=== PATIENT | male | born 1965 | race Caucasian/White ===

== ENCOUNTER → 2017-07-07 09:20 | Outpatient (POV) | payer OTHER, SELFPAY ==
[2017-07-07 09:34] VITALS: BP 140/84; PULSE 96; RESP 17; O2SAT 99; BMI 25.8
--- NOTE | 2017-07-07 09:38 | HMH.PAINSOAP ---
[facility] Pain Management SOAP Note Subjective:: This patient is a pleasant 51-year-old white male who we are seeing for complex regional pain syndrome type I of the right lower leg with spinal cord stimulator in place. Pain is minimal he is doing well with his spinal cord stimulator. Occasionally he does have stimulation down his left leg depending on movement. However overall he is very happy and doing well with decreased pain and increased function. He is also on gabapentin 100 mg 3 times a day which is helping. Objective:: Alert and oriented ?3 in no acute distress. Motor strength of the lower and upper extremities is 5/5. There is no gross sensory deficit. Patient does have a normal gait. Assessment:: CRPS type I right lower leg Plan:: We will follow up with him in 3 months. He is doing very well with his [place] stimulator system. He has one more refill on his gabapentin. He is to continue his gabapentin 100 mg 3 times a day
== END ==
PROVIDERS: Family Provider Emergency Medicine; PCP Emergency Medicine; Visit Provider Anesthesiology
DX: G90.521 Complex regional pain syndrome I of right lower limb (principal)
CPT/HCPCS: 99212

== ENCOUNTER → 2017-09-22 09:56 | Outpatient (POV) | payer OTHER, SELFPAY ==
[2017-09-22 10:34] VITALS: BP 134/104; PULSE 88; RESP 18; O2SAT 98; BMI 25.8
--- NOTE | 2017-09-22 11:17 | HMH.PAINSOAP ---
[facility] Pain Management SOAP Note Subjective:: This patient is a pleasant 52-year-old white male who presents today for follow-up. Patient has spinal cord stimulator placed. Patient states he has almost 100% relief with this. He does still have some overall joint pain. Patient is on gabapentin 100 mg 3 times a day which is helping. Patient denies side effects to the medication. Patient states for the first time in 5 years he is back at work. Patient rates his pain a 2 out of 10 today. ROS General: no recent weight change, no fever, no sleep disturbances Respiratory: no cough, no shortness of air, no recurring pulmonary infections Cardiovascular/Peripheral Vascular: No chest pain, No palpitations, no edema, no shortness of breath. Gastrointestinal: no incontinence, normal bowel movements reported Genitourinary: no incontinence Musculoskeletal: Joint pain Psychiatric: normal mood/ affect Neurological: [denies weakness in extremities], [denies balance issues] Objective:: Physical Exam General: Alert and oriented x3, no acute distress, pleasant and cooperative, [on room air] Lungs: Resps E/U, Symmetrical chest expansion, Eyes: PERRL Musculoskeletal: Range of motion bilateral knees somewhat guarded secondary to pain, deep tendon reflexes normal, strength in upper and lower extremities [5/5], slightly antalgic gait noted Neurological: speech clear, electrical line worker equal, no gross sensory deficits Assessment:: Arthritis, CRPS type I right leg Plan:: We will refill the patient's gabapentin 100 mg 1 p.o. 3 times daily. Patient's SELIN #[id number] reviewed and appropriate. We will also give him some compounding cream for his arthritic joint pain. Dr. Baxter has reviewed this chart and agrees with this plan of care. I will follow-up with the patient in 3 months. This note was dictated using voice recognition software and may contain errors or omissions
--- NOTE | 2017-09-22 11:20 | P.CONS_ITS ---
[facility] Pain Management SOAP Note Subjective:: This patient is a pleasant 52-year-old white male who presents today for follow- up. Patient has spinal cord stimulator placed. Patient states he has almost 100% relief with this. He does still have some overall joint pain. Patient is on gabapentin 100 mg 3 times a day which is helping. Patient denies side effects to the medication. Patient states for the first time in 5 years he is back at work. Patient rates his pain a 2 out of 10 today. ROS General: no recent weight change, no fever, no sleep disturbances Respiratory: no cough, no shortness of air, no recurring pulmonary infections Cardiovascular/Peripheral Vascular: No chest pain, No palpitations, no edema, no shortness of breath. Gastrointestinal: no incontinence, normal bowel movements reported Genitourinary: no incontinence Musculoskeletal: Joint pain Psychiatric: normal mood/ affect Neurological: [denies weakness in extremities], [denies balance issues] Objective:: Physical Exam General: Alert and oriented x3, no acute distress, pleasant and cooperative, [ on room air] Lungs: Resps E/U, Symmetrical chest expansion, Eyes: PERRL Musculoskeletal: Range of motion bilateral knees somewhat guarded secondary to pain, deep tendon reflexes normal, strength in upper and lower extremities [5/5] , slightly antalgic gait noted Neurological: speech clear, degreasing wheel operator equal, no gross sensory deficits Assessment:: Arthritis, CRPS type I right leg Plan:: We will refill the patient's gabapentin 100 mg 1 p.o. 3 times daily. Patient's SELIN #[id number] reviewed and appropriate. We will also give him some compounding cream for his arthritic joint pain. Dr. Baxter has reviewed this chart and agrees with this plan of care. I will follow-up with the patient in 3 months. This note was dictated using voice recognition software and may contain errors or omissions
== END ==
PROVIDERS: Family Provider Emergency Medicine; PCP Emergency Medicine; Visit Provider Clinical Nurse Specialist Family Health
DX: G90.521 Complex regional pain syndrome I of right lower limb (principal)
CPT/HCPCS: 99212

== ENCOUNTER → 2017-10-02 08:06 | Outpatient (POV) | payer OTHER, SELFPAY | PROVIDERS: Visit Provider Dentist | DX: Z00.00 Encounter for general adult medical examination without abnormal findings (principal) ==

== ENCOUNTER → 2017-10-17 10:22 | Outpatient (CLI) | payer OTHER, SELFPAY ==
[2017-10-17 14:25] LABS: Basophils % 0.8 % (0.1-2.0); Eosinophils # 0.2 K/mm3 (0.0-0.4); Eosinophils % 4.1 % (0.1-12.0); Hematocrit 47.1 % (42.0-52.0); Hemoglobin 14.7 g/dL (14.1-18.0); Lymphocytes # 1.9 K/mm3 (0.7-4.5); Mean Corpuscular HGB Conc 31.2 g/dL (31.8-35.4); Mean Corpuscular Hemoglobin 32.2 pg (27.0-31.2); Mean Corpuscular Volume 103.4 fl (80-94); Mean Platelet Volume 9.5 fl (7.4-10.4); Monocytes # 0.3 K/mm3 (0.1-1.0); Monocytes % 5.7 % (1.7-9.3); Neutrophils # 2.5 K/mm3 (1.8-7.8); Neutrophils % 50.5 % (37.0-80.0); Platelet Count 129 K/mm3 (142-424); Red Blood Count 4.55 M/mm3 (4.60-6.20); Red Cell Distribution Width 14.6 % (11.5-17.5); White Blood Count 4.9 K/mm3 (4.8-10.8)
[2017-10-17 15:05] LABS: Alanine Aminotransferase 28 U/L (12-78); Albumin Level 3.8 gm/dL (3.4-5.0); Albumin/Globulin Ratio 1.2 (1.1-1.8); Alkaline Phosphatase 67 U/L (46-116); Anion Gap 12.2 mEq/L (5-15); Aspartate Amino Transferase 28 U/L (15-37); Bilirubin,Total 0.8 mg/dL (0.2-1.0); Blood Urea Nitrogen 11 mg/dL (7-18); Carbon Dioxide 27 mmol/L (21.0-32.0); Chloride 104 mmol/L (98-107); Chol/HDL Ratio 3.7 (1-3.5); Cholesterol 199 mg/dL (140-200); Creatinine,Serum 0.82 mg/dL (0.70-1.30); Estimated Glomerular Filt Rate 99 ml/min (>60); GFR (African American) 120 ML/MIN (>60); Globulin 3.1 gm/dl (1.3-3.2); Glucose 150 mg/dL (74-106); HDL Cholesterol 54 mg/dL (27-67); LDL Cholesterol 134 mg/dL (0-130); Potassium 5.2 mmoL/L (3.5-5.1); Sodium 138 mmol/L (136-145); T4 (Thyroxine) 4.4 ug/dl (4.7-13.3); Thyroid Stimulating Hormone 1.26 uIU/ml (0.358-3.740); Total Protein,Serum 6.9 gm/dL (6.4-8.2); Triglycerides 57 mg/dL (30-200); VLDL Cholesterol 11 mg/dL (0-40)
[2017-10-18 18:13] LABS: PSA, Free 0.18 ng/mL; Prostate Specific Ag 0.4 ng/mL (0.0-4.0)
== END ==
PROVIDERS: Visit Provider Emergency Medicine
DX: R53.83 Other fatigue (principal); R07.9 Chest pain, unspecified; Z29.9 Encounter for prophylactic measures, unspecified; I10 Essential (primary) hypertension; I25.10 Atherosclerotic heart disease of native coronary artery without angina pectoris; J32.9 Chronic sinusitis, unspecified
CPT/HCPCS: 80053; 80061; 84153; 84154; 84436; 84443; 85025

== ENCOUNTER → 2017-10-23 09:34 | Outpatient (CLI) | payer OTHER, SELFPAY | PROVIDERS: Family Provider Emergency Medicine; PCP Emergency Medicine; Visit Provider Emergency Medicine | DX: R07.9 Chest pain, unspecified (principal); R53.83 Other fatigue | CPT/HCPCS: 93017 ==

== ENCOUNTER → 2017-12-23 11:21 | Outpatient (POV) | payer OTHER, SELFPAY ==
[2017-12-23 11:43] VITALS: BP 127/95; PULSE 90; RESP 18; O2SAT 98; BMI 24.1
--- NOTE | 2017-12-23 12:09 | P.CONS_ITS ---
[facility] Pain Management SOAP Note Subjective:: Patient is a pleasant 52-year-old white male who presents today for follow-up. Patient had a neurostimulator placed and is doing extremely well he rates his pain a 2 out of 10 to day. Patient does take gabapentin at nighttime to help him sleep. Patient is doing well with this with no side effects. Patient's SELIN #[id number] reviewed and appropriate. Patient has been able to return to work due to his neurostimulator. ROS General: no recent weight change, no fever, no sleep disturbances Respiratory: no cough, no shortness of air, no recurring pulmonary infections Cardiovascular/Peripheral Vascular: No chest pain, No palpitations, no edema, no shortness of breath. Gastrointestinal: no incontinence, normal bowel movements reported Genitourinary: no incontinence Musculoskeletal: Joint pain, back pain Psychiatric: normal mood/ affect Neurological: [denies weakness in extremities], [denies balance issues] Objective:: Physical Exam General: Alert and oriented x3, no acute distress, pleasant and cooperative, [on room air] Lungs: Resps E/U, Symmetrical chest expansion, Eyes: PERRL Musculoskeletal: Flexion and extension of lumbar spine somewhat guarded secondary to pain, deep tendon reflexes normal, strength in upper and lower extremities [5/5], normal gait noted Neurological: speech clear, industrial maintenance repairer equal, no gross sensory deficits Assessment:: Joint pain, arthritis, CRPS type I right leg Plan:: Patient does not need refills of his gabapentin. We will follow-up with the patient in 6 months. Unless the patient needs anything prior to his next appointment. Patient is doing extremely well at this time. This note was dictated using voice recognition software and may contain errors or omissions
== END ==
PROVIDERS: Family Provider Emergency Medicine; PCP Emergency Medicine; Visit Provider Clinical Nurse Specialist Family Health
DX: G90.521 Complex regional pain syndrome I of right lower limb (principal); M19.90 Unspecified osteoarthritis, unspecified site
CPT/HCPCS: 99213

== ENCOUNTER → 2018-04-13 09:51 | Outpatient (POV) | payer OTHER, SELFPAY ==
[2018-04-13 10:05] VITALS: BP 137/94; PULSE 90; RESP 18; O2SAT 99; BMI 22.7
--- NOTE | 2018-04-13 10:23 | HMH.PAINSOAP ---
[facility] Pain Management SOAP Note Subjective:: Patient is a pleasant 52-year-old white male who presents today for follow-up. Patient is doing well with his neurostimulator for CRPS pain however patient states that he is having low back pain with radiation into his leg. Patient has a diagnosis of degenerative disc disease with radiculopathy. Patient rates his pain today a 7 out of 10. This is unusual for him. ROS General: no recent weight change, no fever, no sleep disturbances Respiratory: no cough, no shortness of air, no recurring pulmonary infections Cardiovascular/Peripheral Vascular: No chest pain, No palpitations, no edema, no shortness of breath. Gastrointestinal: no incontinence, normal bowel movements reported Genitourinary: no incontinence Musculoskeletal: Back pain, leg pain Psychiatric: normal mood/ affect Neurological: [denies weakness in extremities], [denies balance issues] Objective:: Physical Exam General: Alert and oriented x3, no acute distress, pleasant and cooperative, [on room air] Lungs: Resps E/U, Symmetrical chest expansion, Eyes: PERRL Musculoskeletal: Flexion and extension of lumbar spine somewhat guarded secondary to pain, deep tendon reflexes normal, strength in upper and lower extremities [5/5], antalgic gait noted, positive straight leg raise test at 30 degrees on the right side Neurological: speech clear, audiometric technician equal, no gross sensory deficits Assessment:: Degenerative disc disease lumbar spine with lumbar radiculopathy, CRPS type I Plan:: Patient is doing extremely well with his neurostimulator. We will schedule him for an L4-L5 lumbar epidural steroid injection to see if this is beneficial with his new symptoms. If not we will get a MRI of his lower back to determine any new pathology. Patient is not on any anticoagulation therapy. Patient is continuing a home stretching program. Patient is currently taking anti-inflammatories. I will follow-up with him after his injection. This note was dictated using voice recognition software and may contain errors or omissions
--- NOTE | 2018-04-13 10:26 | P.CONS_ITS ---
[facility] Pain Management SOAP Note Subjective:: Patient is a pleasant 52-year-old white male who presents today for follow-up. Patient is doing well with his neurostimulator for CRPS pain however patient states that he is having low back pain with radiation into his leg. Patient has a diagnosis of degenerative disc disease with radiculopathy. Patient rates his pain today a 7 out of 10. This is unusual for him. ROS General: no recent weight change, no fever, no sleep disturbances Respiratory: no cough, no shortness of air, no recurring pulmonary infections Cardiovascular/Peripheral Vascular: No chest pain, No palpitations, no edema, no shortness of breath. Gastrointestinal: no incontinence, normal bowel movements reported Genitourinary: no incontinence Musculoskeletal: Back pain, leg pain Psychiatric: normal mood/ affect Neurological: [denies weakness in extremities], [denies balance issues] Objective:: Physical Exam General: Alert and oriented x3, no acute distress, pleasant and cooperative, [on room air] Lungs: Resps E/U, Symmetrical chest expansion, Eyes: PERRL Musculoskeletal: Flexion and extension of lumbar spine somewhat guarded secondary to pain, deep tendon reflexes normal, strength in upper and lower extremities [5/5], antalgic gait noted, positive straight leg raise test at 30 degrees on the right side Neurological: speech clear, display designer outside equal, no gross sensory deficits Assessment:: Degenerative disc disease lumbar spine with lumbar radiculopathy, CRPS type I Plan:: Patient is doing extremely well with his neurostimulator. We will schedule him for an L4-L5 lumbar epidural steroid injection to see if this is beneficial with his new symptoms. If not we will get a MRI of his lower back to determine any new pathology. Patient is not on any anticoagulation therapy. Patient is continuing a home stretching program. Patient is currently taking anti- inflammatories. I will follow-up with him after his injection. This note was dictated using voice recognition software and may contain errors or omissions
== END ==
PROVIDERS: PCP Emergency Medicine; Visit Provider Clinical Nurse Specialist Family Health
DX: M51.16 Intervertebral disc disorders with radiculopathy, lumbar region (principal); G90.50 Complex regional pain syndrome I, unspecified
CPT/HCPCS: 99213

== ENCOUNTER → 2018-05-11 10:23 | Outpatient (POV) | payer OTHER, SELFPAY ==
[2018-05-11 11:14] VITALS: BP 131/92; PULSE 118; RESP 18; O2SAT 98; BMI 23.3
--- NOTE | 2018-05-11 13:01 | HMH.PAINSOAP ---
[facility] Pain Management SOAP Note Subjective:: Is a pleasant 52-year-old white male who presents today for follow-up. He is been doing well with his stimulator for CRPS pain however he has having low back pain with radiation into his leg. Patient hasa degenerative disc disease with radiculopathy however he states is become quite unusual for him and debilitating. Patient rates his pain 8 out of 10. He is having difficulty with some of his day-to-day functions including his work. Patient does not have any updated imaging in regards to this. ROS General: no recent weight change, no fever, no sleep disturbances Respiratory: no cough, no shortness of air, no recurring pulmonary infections Cardiovascular/Peripheral Vascular: No chest pain, No palpitations, no edema, no shortness of breath. Gastrointestinal: no incontinence, normal bowel movements reported Genitourinary: no incontinence Musculoskeletal: Back pain, leg pain Psychiatric: normal mood/ affect Neurological: [denies weakness in extremities], [denies balance issues] Objective:: Physical Exam General: Alert and oriented x3, no acute distress, pleasant and cooperative, [on room air] Lungs: Resps E/U, Symmetrical chest expansion, Eyes: PERRL Musculoskeletal: Flexion and extension of lumbar spine somewhat guarded secondary to pain, deep tendon reflexes normal, strength in upper and lower extremities [5/5], [abnormal gait noted] positive straight leg raise test bilaterally at 30 degrees Neurological: speech clear, aircraft painter apprentice equal, no gross sensory deficits Assessment:: Degenerative disc disease lumbar spine for radiculopathy, CRPS type Plan:: Will order a lumbar MRI to determine pathology. We will follow-up with the patient after this. He is not on anticoagulation therapy and he is continuing a home stretching program and is on anti-inflammatories. Dr. Baxter has reviewed this note and agrees with this plan of care. This note was dictated using voice recognition software and may contain errors or omissions
== END ==
PROVIDERS: PCP Emergency Medicine; Visit Provider Clinical Nurse Specialist Family Health
DX: M51.16 Intervertebral disc disorders with radiculopathy, lumbar region (principal)
CPT/HCPCS: 99213

== ENCOUNTER → 2018-05-18 13:35 | Outpatient (CLI) | payer OTHER, SELFPAY ==
--- NOTE | 2018-05-18 14:03 | MR_ITS ---
MR lumbar spine wo con, MR 3-d myelogram/MRCP HISTORY: PT states low back pain X years. RT leg pain, numbness, and tingling X 6 months.ITS.REASON: BACK PAIN ORDERING PHYSICIAN: Isabella Saleem PATIENT AGE: 52 years Comparison: None TECHNIQUE: Standard multiplanar multiecho sequences are performed without contrast. 3-D MIP and myelographic images are also rendered and reviewed FINDINGS: The spinal cord ends at L1-L2. Artifact is present from the neurostimulator device in the epidural region. Present from the L3 level superiorly to the T12 level. The artifact obscures the peripheral and posterior aspect of the canal centrally. T12-L1, L1-L2, L2-L3 have an unremarkable appearance aside from the posterior artifact. 304: Mild facet and ligamentum hypertrophy. L4-L5: Concentric bulging disc. This is eccentric toward the left along with moderate facet and ligamentum flavum hypertrophic change with bilateral lateral recess narrowing and moderate bilateral foraminal narrowing. The foraminal and lateral recess narrowing is somewhat worse on the left compared to the right side. L5-S1: Degenerative disc disease with bulging disc along with moderate facet and ligamentum hypertrophy with moderate bilateral lateral recess narrowing. There is moderate to severe right-sided foraminal narrowing and moderate left-sided foraminal narrowing. No extruded herniated disc. No bony canal stenosis. IMPRESSION: 1. Artifact posteriorly from epidural stimulator device. 2. L4-L5: Concentric bulging disc. This is eccentric toward the left along with moderate facet and ligamentum flavum hypertrophic change with bilateral lateral recess narrowing and moderate bilateral foraminal narrowing. The foraminal and lateral recess narrowing is somewhat worse on the left compared to the right side. 3. L5-S1: Degenerative disc disease with bulging disc along with moderate facet and ligamentum hypertrophy with moderate bilateral lateral recess narrowing. There is moderate to severe right-sided foraminal narrowing and moderate left-sided foraminal narrowing.
== END ==
PROVIDERS: PCP Emergency Medicine; Visit Provider Clinical Nurse Specialist Family Health
DX: M54.5 Low back pain (principal); M79.604 Pain in right leg
CPT/HCPCS: 72148; 76376

== ENCOUNTER → 2018-05-25 11:26 | Outpatient (POV) | payer OTHER, SELFPAY ==
[2018-05-25 11:56] VITALS: BP 123/85; PULSE 89; RESP 18; O2SAT 99; BMI 24.1
--- NOTE | 2018-05-25 12:13 | P.CONS_ITS ---
[facility] Pain Management SOAP Note Subjective:: Is a very pleasant 52-year-old white male who presents today for follow-up after MRI. Patient has worsening back pain. Patient states standing and walking makes his pain worse while sitting and bending forward makes it better. Patient has a nerve stimulator for his foot pain. Patient has been very happy with this. Patient rates his pain 8 out of 10 in his back. Patient and I had a discussion about a vertical flex. I do believe it would be beneficial for him. Patient is interested in moving forward with this. He is tried and failed epidural injections along with physical therapy. He is wanting to continue work but is finding it difficult at this time. He is continuing a home stretching program along with anti-inflammatories. ROS General: no recent weight change, no fever, no sleep disturbances Respiratory: no cough, no shortness of air, no recurring pulmonary infections Cardiovascular/Peripheral Vascular: No chest pain, No palpitations, no edema, no shortness of breath. Gastrointestinal: no incontinence, normal bowel movements reported Genitourinary: no incontinence Musculoskeletal: Back pain, leg pain Psychiatric: normal mood/ affect Neurological: [denies weakness in extremities], [denies balance issues] Objective:: Physical Exam General: Alert and oriented x3, no acute distress, pleasant and cooperative, [on room air] Lungs: Resps E/U, Symmetrical chest expansion Eyes: PERRL Musculoskeletal: Flexion and extension of lumbar spine somewhat guarded secondary to pain, deep tendon reflexes normal, strength in upper and lower extremities [5/5], [abnormal gait noted] Neurological: speech clear, geodetic advisor equal, no gross sensory deficits Assessment:: Degenerative disc disease lumbar spine with no stenosis, ligamentum flavum hypertrophy Plan:: We will send the patient for flexion-extension films in regards to potential vertical flex procedure. If he is a candidate we will move forward with this. He is not on any anticoagulation therapy. Dr. Baxter has reviewed this note and agrees with this plan of care. This note was dictated using voice recognition software and may contain errors or omissions
--- NOTE | 2018-05-25 12:14 | XR_ITS ---
EXAM: XR lumbar spine 1V HISTORY: ITS.REASON: BACK PAIN ORDERING PHYSICIAN: Isabella Saleem PATIENT AGE: 52 years COMPARISON: None FINDINGS: An AP view of the lumbar spine shows no significant scoliosis. There is degenerative disc disease at the lumbosacral junction. There is an epidural catheter present with the leads overlying the lower thoracic spine. IMPRESSION: Epidural stimulator device present. No scoliosis
--- NOTE | 2018-05-25 12:14 | XR_ITS ---
EXAM: XR lumbar spine bending only HISTORY: ITS.REASON: BACK PAIN ORDERING PHYSICIAN: Isabella Saleem PATIENT AGE: 52 years COMPARISON: None FINDINGS: Flexion and extension views are obtained but no neutral lateral views are obtained.. There is minimal anterolisthesis of L4 on L5 of 3 to 4 mm on the flexion image. No abnormal subluxation is evident on the extension images. There is degenerative disc disease at L5-S1 and to a lesser degree at L4-L5. There is an epidural stimulator device present at the T12-L1 level. IMPRESSION: 1. Minimal anterolisthesis of L4 on L5 of 3 to 4 mm in flexion. 2. Degenerative disc disease L4-5 and L5-S1
== END ==
PROVIDERS: PCP Emergency Medicine; Visit Provider Clinical Nurse Specialist Family Health
DX: M51.36 Other intervertebral disc degeneration, lumbar region (principal); M46.06 Spinal enthesopathy, lumbar region; M54.9 Dorsalgia, unspecified
CPT/HCPCS: 72020; 72120; 99213

== ENCOUNTER → 2018-06-22 09:02 | Outpatient (POV) | payer OTHER, SELFPAY ==
[2018-06-22 09:42] VITALS: BP 155/94; PULSE 72; RESP 18; O2SAT 98; BMI 23.3
--- NOTE | 2018-06-22 09:49 | HMH.PAINSOAP ---
[facility] Pain Management SOAP Note Subjective:: Patient is a very pleasant 52-year-old white male who presents today for follow-up. Patient had discussed a vertical flex procedure with me however at this time he does not believe it is a viable option due to finances. Patient states most of his pain is in his low back and down his right leg when he is walking he rates his pain a 3 out of 10 today. Patient would like to try an injection prior to making a decision in regards to the for to flex. He is continuing his home stretching program along with his anti-inflammatories. He currently has a neurostimulator which is doing well for his CRPS. ROS General: no recent weight change, no fever, no sleep disturbances Respiratory: no cough, no shortness of air, no recurring pulmonary infections Cardiovascular/Peripheral Vascular: No chest pain, No palpitations, no edema, no shortness of breath. Gastrointestinal: no incontinence, normal bowel movements reported Genitourinary: no incontinence Musculoskeletal:back pain, leg pain Psychiatric: normal mood/ affect Neurological: [denies weakness in extremities], [denies balance issues] Objective:: Physical Exam General: Alert and oriented x3, no acute distress, pleasant and cooperative, [on room air] Lungs: Resps E/U, Symmetrical chest expansion, Eyes: PERRL Musculoskeletal: Flexion and extension of lumbar I no spine somewhat guarded secondary to pain, deep tendon reflexes normal, strength in upper and lower extremities [5/5], antalgic gait noted, positive leg raise test on the right side. Neurological: speech clear, slide fasteners inspector equal, no gross sensory deficits Assessment:: Degenerative disc disease lumbar spine with lumbar spondylosis and ligamentum flavum hypertrophy, lumbar radiculopathy Plan:: We will plan a right transforaminal epidural steroid injection for the patient to see if this is beneficial for him we will go at the L4-L5 level. Patient is not on any anticoagulation therapy. He is continuing his anti-inflammatories and home stretching program. Dr. Baxter has reviewed this note and agrees with this plan of care. This note was dictated using voice recognition software and may contain errors or omissions
--- NOTE | 2018-06-22 09:53 | P.CONS_ITS ---
[facility] Pain Management SOAP Note Subjective:: Patient is a very pleasant 52-year-old white male who presents today for follow- up. Patient had discussed a vertical flex procedure with me however at this time he does not believe it is a viable option due to finances. Patient states most of his pain is in his low back and down his right leg when he is walking he rates his pain a 3 out of 10 today. Patient would like to try an injection prior to making a decision in regards to the for to flex. He is continuing his home stretching program along with his anti-inflammatories. He currently has a neurostimulator which is doing well for his CRPS. ROS General: no recent weight change, no fever, no sleep disturbances Respiratory: no cough, no shortness of air, no recurring pulmonary infections Cardiovascular/Peripheral Vascular: No chest pain, No palpitations, no edema, no shortness of breath. Gastrointestinal: no incontinence, normal bowel movements reported Genitourinary: no incontinence Musculoskeletal:back pain, leg pain Psychiatric: normal mood/ affect Neurological: [denies weakness in extremities], [denies balance issues] Objective:: Physical Exam General: Alert and oriented x3, no acute distress, pleasant and cooperative, [on room air] Lungs: Resps E/U, Symmetrical chest expansion, Eyes: PERRL Musculoskeletal: Flexion and extension of lumbar I no spine somewhat guarded secondary to pain, deep tendon reflexes normal, strength in upper and lower extremities [5/5], antalgic gait noted, positive leg raise test on the right side. Neurological: speech clear, graduate student equal, no gross sensory deficits Assessment:: Degenerative disc disease lumbar spine with lumbar spondylosis and ligamentum flavum hypertrophy, lumbar radiculopathy Plan:: We will plan a right transforaminal epidural steroid injection for the patient to see if this is beneficial for him we will go at the L4-L5 level. Patient is not on any anticoagulation therapy. He is continuing his anti-inflammatories and home stretching program. Dr. Baxter has reviewed this note and agrees with this plan of care. This note was dictated using voice recognition software and may contain errors or omissions
== END ==
PROVIDERS: PCP Emergency Medicine; Visit Provider Clinical Nurse Specialist Family Health
DX: M51.16 Intervertebral disc disorders with radiculopathy, lumbar region (principal); M47.816 Spondylosis without myelopathy or radiculopathy, lumbar region; M46.06 Spinal enthesopathy, lumbar region
CPT/HCPCS: 99213

== ENCOUNTER → 2019-03-30 09:06 | Outpatient (POV) | payer OTHER, SELFPAY ==
--- NOTE | 2019-03-30 09:21 | P.CONS_ITS ---
[facility] Pain Management SOAP Note Subjective:: Patient is a pleasant 53-year-old white male who presents today for follow-up after his injection. Patient did not get any relief. Patient does not want repeat any injections. Patient does have a neurostimulator that may need reprogrammed. It is doing well for his leg however not for his back. He rates his pain a 5 out of 10 today. We will have the [facility] representatives reach out to him. ROS General: no recent weight change, no fever, no sleep disturbances Respiratory: no cough, no shortness of air, no recurring pulmonary infections Cardiovascular/Peripheral Vascular: No chest pain, No palpitations, no edema, no shortness of breath. Gastrointestinal: no new onset incontinence, normal bowel movements reported Genitourinary: no new onset incontinence Musculoskeletal: Back pain Psychiatric: normal mood/ affect Neurological: [denies new onset weakness in extremities], [denies new onset balance issues] Objective:: Physical Exam General: Alert and oriented x3, no acute distress, pleasant and cooperative, [on room air] Lungs: Resps E/U, Symmetrical chest expansion, Eyes: PERRL Musculoskeletal: Flexion and extension of lumbar spine somewhat guarded secondary to pain, deep tendon reflexes normal, strength in upper and lower extremities [5/5], [abnormal gait noted] Neurological: speech clear, 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 Patient's been surgical the office. Dr. Baxter has reviewed this note and agrees with this plan of care. This note was dictated using voice recognition software and may contain errors or omissions [facility] History I have reviewed the patient's past medical history: Yes Medical History: Reports:: Coronary Artery Disease, Gastroesophageal Reflux Disease(GERD), Hyperlipidemia, Hypertension, Myocardial Infarction Denies:: Diabetes Mellitus Type 1, Diabetes Mellitus Type 2, Internal Pacemaker, Lung Disease, Seizures *Have you ever received a pneumonia vaccine?: No *Have you received a flu vaccine this season?: Yes Other Medical History: Reports: Sinus Problems Other Surgeries: Yes: Cardiac Catheterization (2012), EGD, Sinus Surgery, Other. No: Pacemaker Amputation: No Fractures: Yes - *Social History Smoking Status: Never smoker Tobacco Type: cigarettes # Packs/Day (cigarettes): 1 Alcohol Intake: never Alcohol Intake Frequency:: 3 or more drinks per day Substance Use Type: denies use *Occupational Status:: other Household Members: spouse *Travel in the last 8 weeks: None Family Hx:: Hypertension, Cancer
[2019-03-30 10:07] VITALS: BP 161/89; PULSE 93; RESP 18; O2SAT 99; BMI 25.0
== END ==
PROVIDERS: PCP Emergency Medicine; Visit Provider Clinical Nurse Specialist Family Health
DX: M51.16 Intervertebral disc disorders with radiculopathy, lumbar region (principal)
CPT/HCPCS: 99212

== ENCOUNTER → 2019-05-21 17:13 | Outpatient (CLI) | payer MEDICAID, SELFPAY ==
[2019-05-21 17:57] LABS: Basophils # 0.1 K/mm3 (0-0.2); Eosinophils # 0.2 K/mm3 (0.0-0.4); Eosinophils % 3.9 % (0.1-12.0); Hematocrit 47.9 % (42.0-52.0); Hemoglobin 15.6 g/dL (14.1-18.0); Lymphocytes # 2.1 K/mm3 (0.7-4.5); Lymphocytes % 37.6 % (10-50); Mean Corpuscular HGB Conc 32.5 g/dL (31.8-35.4); Mean Corpuscular Hemoglobin 34.9 pg (27.0-31.2); Mean Corpuscular Volume 107.3 fl (80-94); Mean Platelet Volume 8.6 fl (7.4-10.4); Monocytes # 0.4 K/mm3 (0.1-1.0); Monocytes % 6.1 % (1.7-9.3); Neutrophils # 2.9 K/mm3 (1.8-7.8); Neutrophils % 51.3 % (37.0-80.0); Platelet Count 139 K/mm3 (142-424); Red Blood Count 4.46 M/mm3 (4.60-6.20); Red Cell Distribution Width 13.6 % (11.5-17.5); White Blood Count 5.7 K/mm3 (4.8-10.8)
[2019-05-21 19:53] LABS: Alanine Aminotransferase 48 U/L (12-78); Albumin Level 4.2 gm/dL (3.4-5.0); Albumin/Globulin Ratio 1.4 (1.1-1.8); Alkaline Phosphatase 60 U/L (46-116); Anion Gap 16.6 mEq/L (5-15); Aspartate Amino Transferase 63 U/L (15-37); Bilirubin,Total 0.3 mg/dL (0.2-1.0); Blood Urea Nitrogen 14 mg/dL (7-18); Calcium 9.1 mg/dL (8.5-10.1); Carbon Dioxide 27 mmol/L (21.0-32.0); Chloride 104 mmol/L (98-107); Cholesterol 238 mg/dL (140-200); Creatinine,Serum 0.84 mg/dL (0.70-1.30); Estimated Glomerular Filt Rate 96 ml/min (>60); GFR (African American) 116 ML/MIN (>60); Globulin 2.9 gm/dl (1.3-3.2); Glucose 106 mg/dL (74-106); HDL Cholesterol 60 mg/dL (27-67); LDL Cholesterol 145 mg/dL (0-130); Potassium 3.6 mmoL/L (3.5-5.1); Sodium 144 mmol/L (136-145); T4 (Thyroxine) 4.1 ug/dl (4.7-13.3); Thyroid Stimulating Hormone 0.75 uIU/ml (0.358-3.740); Total Protein,Serum 7.1 gm/dL (6.4-8.2); Triglycerides 165 mg/dL (30-200); VLDL Cholesterol 33 mg/dL (0-40)
[2019-05-23 09:30] LABS: Prostate Specific Ag 0.6 ng/mL (0.0-4.0)
[2019-05-25 05:31] LABS: Vitamin D 25 Hydroxy 28.7 ng/mL (30.0-100.0)
== END ==
PROVIDERS: Visit Provider Nurse Practitioner Family
DX: I10 Essential (primary) hypertension (principal); E55.9 Vitamin D deficiency, unspecified
CPT/HCPCS: 80053; 80061; 82652; 84153; 84154; 84436; 84443; 85025

== ENCOUNTER → 2019-09-24 14:35 | Outpatient (CLI) | payer MEDICAID, SELFPAY ==
[2019-09-24 15:41] LABS: Chloride 103 mmol/L (98-107); Sodium 140 mmol/L (136-145)
[2019-09-24 15:42] LABS: Potassium 3.7 mmoL/L (3.5-5.1)
[2019-09-24 15:44] LABS: Alanine Aminotransferase 31 U/L (12-78); Albumin Level 4.6 g/dl (3.5-5.0); Albumin/Globulin Ratio 1.5 (1.1-1.8); Alkaline Phosphatase 59 U/L (38-126); Anion Gap 12.7 mEq/L (5-15); Aspartate Amino Transferase 56 U/L (17-59); Bilirubin,Total 1.3 mg/dl (0.2-1.3); Blood Urea Nitrogen 18 mg/dl (9-20); Carbon Dioxide 28 mmol/L (22.0-30.0); Cholesterol 214 mg/dl (140-200); Estimated Glomerular Filt Rate 101 ml/min (>60); GFR (African American) 122 ML/MIN (>60); Glucose 149 mg/dl (74-100); Total Protein,Serum 7.6 g/dl (6.3-8.2); Triglycerides 108 mg/dl (30-150); VLDL Cholesterol 22 mg/dL (0-40)
[2019-09-24 15:45] LABS: Calcium 9.8 mg/dl (8.4-10.2); Chol/HDL Ratio 4.3 (1-3.5); HDL Cholesterol 50 mg/dl (40-60)
[2019-09-24 16:02] LABS: T4 (Thyroxine) 5.8 ug/dl (5.53-11.0)
== END ==
PROVIDERS: Visit Provider Nurse Practitioner Family
DX: I10 Essential (primary) hypertension (principal); Z79.899 Other long term (current) drug therapy
CPT/HCPCS: 80053; 80061; 84436

== ENCOUNTER → 2019-10-19 12:07 | Outpatient (CLI) | payer MEDICAID, SELFPAY ==
[2019-10-19 13:17] LABS: Hemoglobin A1C 5.5 % (4.0-6.0)
[2019-10-19 13:59] LABS: Coronavirus 19 IgG Antibody Negative (Negative); Coronavirus 19 IgM Antibody Negative (Negative)
== END ==
PROVIDERS: Emergency Medicine; Visit Provider Physician Assistant
DX: R73.9 Hyperglycemia, unspecified (principal)
CPT/HCPCS: 36415; 83036; 86328

== ENCOUNTER → 2021-11-12 14:01 | Outpatient (POV) | payer MEDICAID, SELFPAY ==
[2021-11-12 14:32] VITALS: BP 141/97; PULSE 93; RESP 20; TEMP 36.9; O2SAT 98; BMI 26.6
--- NOTE | 2021-11-12 15:33 | HMH.PMCON ---
Assessment and Plan (1) CRPS (complex regional pain syndrome) type I of lower limb Status: Acute Category: Medical Code(s): G90.529 - Complex regional pain syndrome I of unspecified lower limb - Assessment and plan all Dx Assessment and Plan for all problems:: We will schedule this patient for a generator change of his Aguilar DRG stimulator. Patient has been instructed to contact the clinic with any concerns before the next appointment. Dr. Baxter has reviewed this note and agrees with this plan of care. This note was dictated using voice recognition software and make contain errors or omissions. HPI - Data of Consult Consult date: 11/12/21 Requesting Physician: LILLIAM Christianson - Consult Narrative Reason for consult: Right leg pain History of present illness: Mr. Adams is a 56 year old male who [facility] We were seeing this patient for CRPS of the right lower extremity in 2019. He initially injured his right foot in 2012. We have not seen this patient since 2019. We have been managing this patient with an Aguilar DRG stimulator for his right lower extremity. He had reached out to [facility] who said that he needs a new generator. Patient states that he has been increasing pain on his right lower extremity. He has tried and failed conservative therapy in the past such as physical therapy and home exercises for getting 6 weeks and oral medications. Rates pain today as 6 out of 10. CC: LILLIAM Chrisitanson [facility] History I have reviewed the patient's past medical history: Yes Medical History: Reports:: Coronary Artery Disease, Gastroesophageal Reflux Disease(GERD), Hyperlipidemia, Hypertension, Myocardial Infarction Denies:: Diabetes Mellitus Type 1, Diabetes Mellitus Type 2, Internal Pacemaker, Lung Disease, Seizures *Have you ever received a pneumonia vaccine?: No *Have you received a flu vaccine this season?: No Other Medical History: Reports: Arthritis, Sinus Problems Laterality Cases: Right: Other Other Surgeries: Yes: Cardiac Catheterization, Colonoscopy, EGD, Sinus Surgery, Other (EAR SX). No: Pacemaker Amputation: No Fractures: Yes (R LEG FX AND SX) - *Social History Smoking Status: Current every day smoker Tobacco Type: cigarettes # Packs/Day (cigarettes): 1 Alcohol Intake: current Alcohol Intake Frequency:: 3 or more drinks per day Substance Use Type: denies use *Occupational Status:: other Household Members: spouse *Travel in the last 8 weeks: None Family Hx:: Hypertension, Cancer Review of Systems - Review of Systems Review of Systems: General: No recent weight changes, no fever, no sleep disturbances Respiratory: No cough, no shortness of air, no recurring pulmonary infections Cardiovascular/peripheral vascular: No chest pain, no palpitations, no edema, no shortness of breath Gastrointestinal: No new onset incontinence, normal bowel movements reported Genitourinary: No new onset incontinence Musculoskeletal: Right leg pain Psychiatric: [Normal mood/affect] Neurological: [Denies weakness in extremities], [denies balance issues] Meds Home Medications Medication Instructions Recorded Confirmed Type Amlodipine Besylate See Rx Instructions .ROUTE .COMPLEX 11/12/21 11/12/21 History Cholecalciferol (Vitamin D3) See Rx Instructions .ROUTE .COMPLEX 11/12/21 11/12/21 History [Vitamin D3 1,000 Unit Tab] Simvastatin See Rx Instructions .ROUTE .COMPLEX 11/12/21 11/12/21 History lisinopriL [Lisinopril] See Rx Instructions .ROUTE .COMPLEX 11/12/21 11/12/21 History Allergies Allergy/AdvReac Type Severity Reaction Status Date / Time codeine [CODEINE] Allergy Unknown I-ITCHING Verified 10/06/19 13:56 Objective Vital signs: Temp Pulse Resp BP Pulse Ox 98.4 F 93 H 20 141/97 H 98 11/12/21 14:32 11/12/21 14:32 11/12/21 14:32 11/12/21 14:32 11/12/21 14:32 Narrative: Physical Exam: General: Alert and oriented x3, no acute distress, pleasant and cooperative
== END ==
PROVIDERS: Visit Provider Student in an Organized Health Care Education/Training Program
DX: G90.529 Complex regional pain syndrome I of unspecified lower limb (principal); Z72.0 Tobacco use
CPT/HCPCS: 99202; G0463

== ENCOUNTER → 2021-12-26 08:31 | Outpatient (CLI) | payer MEDICAID, SELFPAY ==
[2021-12-26 09:22] LABS: Basophils # 0.1 K/mm3 (0-0.2); Basophils % 1.4 % (0.1-2.0); Eosinophils # 0.2 K/mm3 (0.0-0.4); Eosinophils % 3.6 % (0.1-12.0); Hematocrit 52.3 % (42.0-52.0); Hemoglobin 16.2 g/dL (14.1-18.0); Lymphocytes # 2.5 K/mm3 (0.7-4.5); Lymphocytes % 40.8 % (10-50); Mean Corpuscular Hemoglobin 34.8 pg (27.0-31.2); Mean Corpuscular Volume 112.1 fl (80-94); Mean Platelet Volume 9.1 fl (7.4-10.4); Monocytes # 0.5 K/mm3 (0.1-1.0); Monocytes % 8.8 % (1.7-9.3); Neutrophils # 2.8 K/mm3 (1.8-7.8); Neutrophils % 45.4 % (37.0-80.0); Platelet Count 130 K/mm3 (142-424); Red Blood Count 4.66 M/mm3 (4.60-6.20); Red Cell Distribution Width 13.9 % (11.5-17.5); White Blood Count 6.2 K/mm3 (4.8-10.8)
[2021-12-26 10:21] LABS: Anion Gap 9.3 mEq/L (5-15); Blood Urea Nitrogen 9 mg/dl (9-20); Calcium 9.7 mg/dl (8.4-10.2); Carbon Dioxide 26 mmol/L (22.0-30.0); Chloride 107 mmol/L (98-107); Estimated Glomerular Filt Rate 100 ml/min (>60); GFR (African American) 121 ML/MIN (>60); Glucose 85 mg/dl (74-100); Potassium 4.3 mmoL/L (3.5-5.1); Sodium 138 mmol/L (136-145)
== END ==
PROVIDERS: PCP Emergency Medicine; Visit Provider Anesthesiology
DX: Z01.812 Encounter for preprocedural laboratory examination (principal); Z20.822 Contact with and (suspected) exposure to COVID-19
CPT/HCPCS: 36415; 80048; 85025; C9803; U0003; U0005

== ENCOUNTER 2021-12-28 07:19 | Day surgery (SDC) | payer MEDICAID, SELFPAY ==
[2021-12-25 13:09] VITALS: BMI 25.8
[2021-12-28 07:34] VITALS: BP 127/82; PULSE 85; RESP 18; TEMP 36.6; O2SAT 98
--- NOTE | 2021-12-28 09:16 | P.PN_ITS ---
PFSH PFSH Medical History Colonoscopy planned History of back pain History of heart attack Right leg injury Surgical History History of tympanoplasty of right ear Hx of cardiac catheterization S/P insertion of spinal cord stimulator Family History Other No significant family history Social History Smoking Status: Current every day smoker tobacco type: cigarettes packs per day: 1 years smoked: 40 alcohol intake: current counseling provided: none substance use type: denies use current occupational status: other Travel in the last 8 weeks: None household members: none housing: house lives independently: Yes marital status: service: No halfway: No current occupational exposures/hazards: No caffeine: Yes do you feel safe at home: Yes victim of physical abuse: No victim of emotional abuse: No victim of sexual abuse: No [facility] Anesthesia Checklist Patient Identification Patient Identification: Arm Band and Verbal (Name & ) Structural Data Admitted From: Home Planned Operative Procedure/s: Generator change Consent for Planned Operative Procedure(s) Verified: Yes NPO Status Verified Time NPO: 00:00 Additional verifications Anesthesia Reactions: No Hx Blood Transfusions: No Blood Transfusion Reaction: No Airway Assessment C-Spine Mobility Assessed: Yes TMJ Mobility Assessed: Yes Dentition: Edentulous Neurological Assessment Level of Consciousness: Awake Hx Seizures: No Numbness or tingling in extremities: No Anesthesia Plan Anesthesia Plan: Verified ASA Class: III Anesthesia Type: MAC
[2021-12-28 10:28] VITALS: BP 64/48; PULSE 88; RESP 14; TEMP 36.3; O2SAT 98
[2021-12-28 10:38] VITALS: BP 83/58; PULSE 72; RESP 14; TEMP 36.3; O2SAT 93
--- NOTE | 2021-12-28 10:47 | P.OP_ITS ---
Date of procedure: 12/28/21 Pre-op Diagnosis:: End-of-life spinal cord stimulator battery Aguilar with traditional spinal cord stimulator leads Post-op Diagnosis:: Same Procedure performed:: Replacement spinal cord stimulator battery Surgeon:: Butch Baxter MD DIRECTOR BIOMEDICAL ENGINEERING:: Eriberto Edward Anesthesia: MAC Estimated blood loss (mL): 5 Clinical Note:: This patient is a pleasant 56-year-old white male who has an Aguilar traditional spinal cord stimulator system. His leads are at T10-T11 and T12. He is doing well with his spinal cord stimulation. His habit battery is end-of-life and is currently . We will replace his spinal cord stimulator battery today. Operative findings:: None Operative note:: Informed consent was obtained risk and benefits of the procedure were explained to the patient. The patient was taken to the operating room placed prone on the procedure table. We did take pictures of the leads to document position at the [id number] interspace. We anesthetized the skin and subcutaneous tissues overlying the battery. I made an incision and dissected down to the battery. I exposed the battery and disconnected the leads. I reconnected the new leads to the new battery. Impedances were checked and found to be okay. I then placed the battery back in the pocket. I irrigated the pocket with antibiotic solution. I then closed the pocket with 2-0 Vicryl followed by 4-0 nylon. A wound VAC was placed over the incision. The patient was placed in an abdominal binder taken recovery stable condition. The patient tolerated the procedure well with no complications. We will follow-up with this patient in 1 weeks. We will reprogram his stimulator if needed. Sutures will be taken out in 3 weeks. Condition: stable Disposition: PACU Complications:: None
[2021-12-28 10:48] VITALS: BP 111/76; PULSE 77; RESP 18; TEMP 36.3; O2SAT 96
[2021-12-28 10:58] VITALS: BP 126/95; PULSE 69; RESP 18; TEMP 36.3; O2SAT 96
[2021-12-28 11:28] VITALS: BP 127/85; PULSE 61; RESP 18; TEMP 36.3; O2SAT 98
--- NOTE | 2021-12-28 14:26 | PC.NURSE ---
ORAL AIRWAY IN PLACE
--- NOTE | 2021-12-28 14:29 | PC.NURSE ---
ORAL AIRWAY REMOVED- PATIENT TOLERATED WELL
== END 2021-12-28 11:28 | disposition home or self-care (01) ==
PROVIDERS: PCP Nurse Practitioner Family; Visit Provider Anesthesiology
PROC: (CPT 63685; principal; 2021-12-28 09:00)
DX: T85.113A Breakdown (mechanical) of implanted electronic neurostimulator, generator, initial encounter (principal); Z45.49 Encounter for adjustment and management of other implanted nervous system device; Z72.0 Tobacco use; Z79.899 Other long term (current) drug therapy
CPT/HCPCS: 63685; 96374; C1767

== ENCOUNTER → 2022-01-03 14:47 | Outpatient (POV) | payer MEDICAID, SELFPAY ==
[2022-01-03 15:02] VITALS: BP 130/79; PULSE 96; RESP 18; TEMP 36.7; O2SAT 97; BMI 25.8
--- NOTE | 2022-01-03 15:31 | EXP.PAIN.SOA ---
[facility] Pain Management SOAP Note Subjective:: Patient is a pleasant 56-year-old male who presents today for follow-up from removal of end-of-life spinal cord stimulator battery and implantation of new battery on 12/28/2021. We are currently treating the patient for CRPS type I lower limb, right leg pain. Today the patient rates his pain a 3 out of 10. He denies any problems following this procedure. He states he is doing well with minimal pain around his incision sites. Patient denies any new trauma or injury to the site. He denies any change to the location or type of pain he experiences. Patient is not on any scheduled medications currently. He states he had been previously on gabapentin 100 mg 3 times daily back before the pandemic. Patient denies any side effects from this medication. He states this medication did help adequately manage his nerve pain. He is requesting to be put back on this medication at today's visit. His Eric is [id number]. It has been reviewed and appropriate. Review of Systems: General: No recent weight changes, no fever, no sleep disturbances Respiratory: No cough, no shortness of air, no recurring pulmonary infections Cardiovascular/peripheral vascular: No chest pain, no palpitations, no edema, no shortness of breath Gastrointestinal: No new onset incontinence, normal bowel movements reported Genitourinary: No new onset incontinence Musculoskeletal: Right leg pain Psychiatric: [Normal mood/affect] Neurological: [Denies weakness in extremities], [denies balance issues] Objective:: Physical Exam: General: Alert and oriented x3, no acute distress, pleasant and cooperative Lungs: Respirations even and unlabored, symmetrical chest expansion Eyes: PERRL Musculoskeletal: Flexion and extension of right leg somewhat guarded secondary to pain, [antalgic gait noted] Neurological: Speech clear, no gross sensory deficit Skin: Incision site clean, dry, well approximated, no erythema Assessment:: CRPS type one of the lower limb, right leg pain Plan:: Patient has had significant improvement of his symptoms following replacement of his Aguilar spinal cord stimulator battery. Patient's incision site is clean, dry, well approximated with no erythema noted at today's visit. Patient has been counseled to continue restrictions such as no bending, lifting, twisting and no swimming, or tub bathing. Patient is currently still using his abdominal binder and has been instructed to continue. Aguilar wholesale representative reprogrammed the patient at today's visit with good pain coverage. I will send in a new prescription of gabapentin 100 mg 3 times daily and provide a 1 month supply of this medication. Patient will follow-up in office in 2 weeks for reevaluation of symptoms and removal of sutures. Patient has been instructed to contact the clinic with any concerns before the next appointment. Dr. Baxter has reviewed this note and agrees with this plan of care. This note was dictated using voice recognition software and make contain errors or omissions. PFSH PFSH Medical History Colonoscopy planned History of back pain History of heart attack Right leg injury Surgical History History of tympanoplasty of right ear Hx of cardiac catheterization S/P insertion of spinal cord stimulator Family History Other No significant family history Social History Smoking Status: Current every day smoker tobacco type: cigarettes packs per day: 1 years smoked: 40 alcohol intake: current counseling provided: none substance use type: denies use current occupational status: other Travel in the last 8 weeks: None household members: spouse housing: house lives independently: Yes marital status: service: No
== END | disposition home or self-care (01) ==
PROVIDERS: Visit Provider Nurse Practitioner Family
DX: G90.521 Complex regional pain syndrome I of right lower limb (principal); Z72.0 Tobacco use; Z79.899 Other long term (current) drug therapy
CPT/HCPCS: 99212; G0463

== ENCOUNTER → 2022-01-18 16:02 | Outpatient (CLI) | payer MEDICAID, SELFPAY ==
[2022-01-18 14:45] LABS: Basophils # 0.2 K/mm3 (0-0.2); Basophils % 3.7 % (0.1-2.0); Eosinophils # 0.3 K/mm3 (0.0-0.4); Eosinophils % 5.5 % (0.1-12.0); Hematocrit 50.9 % (42.0-52.0); Hemoglobin 16.5 g/dL (14.1-18.0); Lymphocytes # 2.9 K/mm3 (0.7-4.5); Lymphocytes % 52.3 % (10-50); Mean Corpuscular HGB Conc 32.5 g/dL (31.8-35.4); Mean Corpuscular Hemoglobin 35.3 pg (27.0-31.2); Mean Corpuscular Volume 108.6 fl (80-94); Mean Platelet Volume 8.9 fl (7.4-10.4); Monocytes # 0.4 K/mm3 (0.1-1.0); Neutrophils # 1.8 K/mm3 (1.8-7.8); Neutrophils % 31.5 % (37.0-80.0); Platelet Count 176 K/mm3 (142-424); Red Blood Count 4.69 M/mm3 (4.60-6.20); Red Cell Distribution Width 13.9 % (11.5-17.5); White Blood Count 5.6 K/mm3 (4.8-10.8)
[2022-01-18 14:52] LABS: Alanine Aminotransferase 18 U/L (12-78); Albumin Level 4.4 g/dl (3.5-5.0); Albumin/Globulin Ratio 1.6 (1.1-1.8); Alkaline Phosphatase 48 U/L (38-126); Aspartate Amino Transferase 36 U/L (17-59); Bilirubin,Total 0.5 mg/dl (0.2-1.3); Blood Urea Nitrogen 11 mg/dl (9-20); Calcium 9.7 mg/dl (8.4-10.2); Carbon Dioxide 24 mmol/L (22.0-30.0); Chloride 107 mmol/L (98-107); Cholesterol 214 mg/dl (140-200); Estimated Glomerular Filt Rate 100 ml/min (>60); GFR (African American) 121 ML/MIN (>60); Globulin 2.8 g/dL (1.3-3.2); Glucose 87 mg/dl (74-100); HDL Cholesterol 43 mg/dl (40-60); Magnesium 1.5 mg/dl (1.6-2.3); Sodium 143 mmol/L (136-145); Total Protein,Serum 7.2 g/dl (6.3-8.2); Triglycerides 131 mg/dl (30-150); VLDL Cholesterol 26 mg/dL (0-40)
[2022-01-18 15:05] LABS: MANUAL DIFFERENTIAL MANUAL DIFFERENTIAL (MANUAL DIFF)
[2022-01-18 15:09] LABS: 25-OH Vitamin D, Total 53.4 ng/mL (30-100)
[2022-01-18 15:22] LABS: Thyroid Stimulating Hormone 1.42 uIU/mL (0.465-4.68)
[2022-01-18 15:36] LABS: Free T4 (Free Thyroxine) 0.83 ng/dl (0.78-2.19)
[2022-01-18 15:58] LABS: Vitamin B12 348 pg/mL (239-931)
[2022-01-18 16:07] LABS: Lymphocytes % 37 % (10-50); Monocytes % 1 % (2-9); Neutrophils % 62 % (42-76); Platelet Estimate Normal; RBC Morphology Normal; Total Cells Counted 100
[2022-01-18 16:08] LABS: Folate 5.48 ng/mL
== END ==
PROVIDERS: PCP Emergency Medicine; Visit Provider Emergency Medicine
DX: G62.9 Polyneuropathy, unspecified (principal); E55.9 Vitamin D deficiency, unspecified; Z79.899 Other long term (current) drug therapy
CPT/HCPCS: 80053; 80061; 82306; 82607; 82746; 83735; 84439; 84443; 85007; 85025

== ENCOUNTER → 2022-01-21 12:57 | Outpatient (POV) | payer MEDICAID, SELFPAY ==
--- NOTE | 2022-01-21 13:17 | EXP.PAIN.SOA ---
[facility] Pain Management SOAP Note Subjective:: Patient is a pleasant 56-year-old male who presents today for follow-up of spinal cord stimulator implant on 12/28/2021. We are currently treating the patient for C RPS type I lower limb, right leg pain. Today patient rates his pain a 1 out of 10. He states that he has had significant improvement following this procedure. Today he is having his sutures removed. Patient denies any problems following this procedure and states he has had some itching around the incision site. Patient states that he has been able to increase his activity and going back to work. Patient is self-employed and is a contractor. Patient denies any new trauma or injury. Patient denies any change in location or type of pain he experiences. Patient is not currently on any scheduled medications. Patient is currently managed with gabapentin 100 mg 3 times a day. Patient denies any side effects from this medication. He states this medication does adequately help manage his pain. Patient's Eric was reviewed and is appropriate. Review of Systems: General: No recent weight changes, no fever, no sleep disturbances Respiratory: No cough, no shortness of air, no recurring pulmonary infections Cardiovascular/peripheral vascular: No chest pain, no palpitations, no edema, no shortness of breath Gastrointestinal: No new onset incontinence, normal bowel movements reported Genitourinary: No new onset incontinence Musculoskeletal: Right leg pain Psychiatric: [Normal mood/affect] Neurological: [Denies weakness in extremities], [denies balance issues] Objective:: Physical Exam: General: Alert and oriented x3, no acute distress, pleasant and cooperative Lungs: Respirations even and unlabored, symmetrical chest expansion Eyes: PERRL Musculoskeletal: Flexion and extension of lumbar [spine] somewhat guarded secondary to pain, [antalgic gait noted] Neurological: Speech clear, no gross sensory deficit Skin: Clean, dry, well approximated, minimal erythema Assessment:: CRPS type I lower limb, right leg pain Plan:: Patient has had significant improvement following his spinal cord stimulator implant. Patient's incision site is clean, dry, well approximated with minimal erythema noted during today's visit. Skin glue and Steri-Strips were applied to the incision site following removal of sutures. Patient was counseled to continue with restrictions on bending, lifting, twisting, tub bathing for the full 6 weeks. Patient will return to clinic in 1 month for reevaluation of symptoms and follow-up. Patient has been instructed to contact the clinic with any concerns before the next appointment. Dr. Baxter has reviewed this note and agrees with this plan of care. This note was dictated using voice recognition software and make contain errors or omissions. [facility] Medical History Colonoscopy planned History of back pain History of heart attack Right leg injury Surgical History History of tympanoplasty of right ear Hx of cardiac catheterization S/P insertion of spinal cord stimulator Family History Other No significant family history Social History Smoking Status: Current every day smoker tobacco type: cigarettes packs per day: 1 years smoked: 40 alcohol intake: current counseling provided: none substance use type: denies use current occupational status: other Travel in the last 8 weeks: None household members: spouse housing: house lives independently: Yes marital status: service: No group home: No current occupational exposures/hazards: No caffeine: Yes do you feel safe at home: Yes victim of physical abuse: No victim of emotional abuse: No victim of sexual abuse: No
[2022-01-21 14:04] VITALS: BP 127/87; PULSE 73; RESP 18; TEMP 36.8; O2SAT 100; BMI 23.3
== END ==
PROVIDERS: PCP Emergency Medicine; Visit Provider Nurse Practitioner Family
DX: G90.529 Complex regional pain syndrome I of unspecified lower limb (principal); Z79.899 Other long term (current) drug therapy; Z72.0 Tobacco use
CPT/HCPCS: 99212; 99213; G0463

== ENCOUNTER → 2022-02-21 11:44 | Outpatient (POV) | payer MEDICAID, SELFPAY ==
[2022-02-21 12:06] VITALS: BP 133/97; PULSE 78; RESP 20; BMI 24.2
--- NOTE | 2022-02-21 12:57 | EXP.PAIN.SOA ---
[facility] Pain Management SOAP Note Subjective:: Patient is a pleasant 56-year-old male who presents today for follow-up. We are currently treating the patient for CRPS type I lower limb, right leg pain. Today the patient rates his pain a 1 out of 10. Patient denies any new trauma or injury. He denies any change to location or type of pain he experiences. Patient has had significant improvement of his pain symptoms following his spinal cord stimulator implant on 12/28/2021. Patient denies any problems with his device. He states the programming he currently has works well for him. Patient is prescribed gabapentin 100 mg 3 times a day however the patient states he only takes this medication twice a day due to the groggy hung over feeling. Patient denies any other issues with this medicine. He states this medication does adequately help manage his symptoms. His Eric is [phone]. It is been reviewed and appropriate. Review of Systems: General: No recent weight changes, no fever, no sleep disturbances Respiratory: No cough, no shortness of air, no recurring pulmonary infections Cardiovascular/peripheral vascular: No chest pain, no palpitations, no edema, no shortness of breath Gastrointestinal: No new onset incontinence, normal bowel movements reported Genitourinary: No new onset incontinence Musculoskeletal: Right leg pain Psychiatric: [Normal mood/affect] Neurological: [Denies weakness in extremities], [denies balance issues] Objective:: Physical Exam: General: Alert and oriented x3, no acute distress, pleasant and cooperative Lungs: Respirations even and unlabored, symmetrical chest expansion Eyes: PERRL Musculoskeletal: Flexion and extension of right leg somewhat guarded secondary to pain, [antalgic gait noted] Neurological: Speech clear, no gross sensory deficit Assessment:: CRPS type I lower limb, right leg pain Plan:: Patient is doing well with his current spinal cord stimulator and medication regimen. I will refill the patient's gabapentin 100 mg twice a day and provide a 1 month supply of this medication. We will follow-up with the patient in 1 month. Patient will return to clinic in 1 month for reevaluation of symptoms, medication refill and follow-up. Patient has been instructed to contact the clinic with any concerns before the next appointment. Dr. Baxter has reviewed this note and agrees with this plan of care. This note was dictated using voice recognition software and make contain errors or omissions. [facility] Medical History Colonoscopy planned History of back pain History of heart attack Right leg injury Surgical History History of tympanoplasty of right ear Hx of cardiac catheterization S/P insertion of spinal cord stimulator Family History Other No significant family history Social History Smoking Status: Current every day smoker tobacco type: cigarettes packs per day: 1 years smoked: 40 alcohol intake: current counseling provided: none substance use type: denies use current occupational status: disabled Travel in the last 8 weeks: None household members: spouse housing: house lives independently: Yes marital status: service: No halfway: No current occupational exposures/hazards: No caffeine: Yes do you feel safe at home: Yes victim of physical abuse: No victim of emotional abuse: No victim of sexual abuse: No
== END | disposition home or self-care (01) ==
PROVIDERS: PCP Emergency Medicine; Visit Provider Nurse Practitioner Family
DX: G90.529 Complex regional pain syndrome I of unspecified lower limb (principal); Z72.0 Tobacco use
CPT/HCPCS: 99212; G0463

== ENCOUNTER → 2022-03-21 09:47 | Outpatient (POV) | payer MEDICAID, SELFPAY ==
[2022-03-21 09:52] VITALS: BP 128/90; PULSE 83; RESP 18; O2SAT 98; BMI 24.2
--- NOTE | 2022-03-21 09:55 | EXP.PAIN.SOA ---
[facility] Pain Management SOAP Note Subjective:: Patient is a pleasant 56-year-old male who presents today for medication refill and follow-up. We are currently treating the patient for CRPS of the lower limb, right leg pain. Today he rates his pain a 1 out of 10. Patient denies any new trauma or injury. Patient denies any change location or type of pain he experiences. Patient does have a spinal cord stimulator in place from 12/28/2021. Patient denies any problems with this device. He states this is working well for him and states he does not need any reprogramming at this time. He is currently prescribed gabapentin 100 mg 2 times a day. Patient denies any other side effects with this medication. And he states this medication does help his symptoms. He is requesting refill at today's visit. His Eric is [phone]. It has been reviewed and appropriate. Review of Systems: General: No recent weight changes, no fever, no sleep disturbances Respiratory: No cough, no shortness of air, no recurring pulmonary infections Cardiovascular/peripheral vascular: No chest pain, no palpitations, no edema, no shortness of breath Gastrointestinal: No new onset incontinence, normal bowel movements reported Genitourinary: No new onset incontinence Musculoskeletal: Right leg pain Psychiatric: [Normal mood/affect] Neurological: [Denies weakness in extremities], [denies balance issues] Objective:: Physical Exam: General: Alert and oriented x3, no acute distress, pleasant and cooperative Lungs: Respirations even and unlabored, symmetrical chest expansion Eyes: PERRL Musculoskeletal: Flexion and extension of right leg somewhat guarded secondary to pain, [antalgic gait noted] Neurological: Speech clear, no gross sensory deficit Assessment:: CRPS of lower limb, right leg pain Plan:: Patient continues to have pain in his lower extremity on the right side however he is doing well with his current medication regimen. I will refill the patient's gabapentin 100 mg twice daily and provide a 1 month supply of this medication. Patient will return to clinic in 1 month for reevaluation of symptoms, medication refill and follow-up. Patient has been instructed to contact the clinic with any concerns before the next appointment. Dr. Baxter has reviewed this note and agrees with this plan of care. This note was dictated using voice recognition software and make contain errors or omissions. [facility] Disclaimer: The information contained in this section may have been updated after the patient was seen, as this information can be updated by other users. Medical History Colonoscopy planned History of back pain History of heart attack Right leg injury Surgical History History of tympanoplasty of right ear Hx of cardiac catheterization S/P insertion of spinal cord stimulator Family History Other No significant family history Social History Smoking Status: Current every day smoker tobacco type: cigarettes packs per day: 1 years smoked: 40 alcohol intake: current counseling provided: none substance use type: denies use current occupational status: unemployed Travel in the last 8 weeks: None household members: spouse housing: house lives independently: Yes marital status: service: No jail: No current occupational exposures/hazards: No caffeine: Yes do you feel safe at home: Yes victim of physical abuse: No victim of emotional abuse: No victim of sexual abuse: No
== END | disposition home or self-care (01) ==
PROVIDERS: PCP Emergency Medicine; Visit Provider Nurse Practitioner Family
DX: M79.604 Pain in right leg (principal); Z72.0 Tobacco use; Z79.899 Other long term (current) drug therapy
CPT/HCPCS: 99212; G0463

== ENCOUNTER 2022-11-27 06:39 | Emergency (ER) | payer SELFPAY ==
[2022-11-27 06:40] VITALS: BP 160/89; PULSE 91; RESP 19; TEMP 37; O2SAT 95; BMI 23.5
[2022-11-27 06:53] VITALS: BP 169/88; PULSE 89; RESP 19; TEMP 37; O2SAT 95
--- NOTE | 2022-11-27 07:02 | HMH.EDGENADL ---
Discharge Plan Disposition Patient Disposition: Home, Self-Care Condition: Good Prescriptions Prescriptions: No Action amoxicillin-pot clavulanate 875-125 mg tablet 1 tab PO BID 10 Days Qty: 20 0RF methylprednisolone [Methylpred DP] 4 mg tablets,dose pack See Rx Instructions PO PER PKG DIR Qty: 21 0RF Rx Instructions: PO PER PKG DIR Referrals Follow up/Referrals: Gadiel Dumont MD [Primary Care Provider] - See instructions Activity Restrictions/Add. Instructions Additional Instructions/Restrictions: You were evaluated in the emergency department today. At this time, you do not be appropriately medically cleared for incarceration. Return to the emergency department for any new or worsening symptoms. Clinical Impressions Clinical Impression: Alcohol intoxication, Medical clearance for incarceration Discharge ED Provider: Chloe Mandujano General Adult HPI General Chief complaint: Medical Clearance Stated complaint: Medical clearance Time Seen by Provider: 11/27/22 06:44 Mode of Arrival: Ambulatory Source of Information: Patient Limitations: No Limitations Description of Symptoms (Recalled from ER Triage Doc. by RN): 57 m presents with local PD officer [place] for [place] intoxication. Per officer, patient blew a 0.223 after they found him passed at [employer]. Patient is ambulatory on his own, a/o x3, and pleasant. Patient admits he drank a shit load of [employer] tonight. History of Present Illness HPI narrative: This patient is a 57-year-old male who denies significant past medical history presenting to the emergency department for evaluation for medical clearance for incarceration. Police report that they picked up the patient passed out at [employer] [facility] and he blew 0.223. Patient states that he had been drinking heavily tonight. He states that he is feeling fine. He is alert and oriented and conversational and denies any concerns or complaints. Related Data Previous Rx's Medication Instructions Recorded amoxicillin 875 mg-potassium 1 tab PO BID 10 days #20 tabs 08/21/22 clavulanate 125 mg tablet methylprednisolone 4 mg tablets in See Rx Instructions PO PER PKG DIR 08/21/22 a dose pack (Methylpred DP) #21 tabs Allergies Allergy/AdvReac Type Severity Reaction Status Date / Time codeine [CODEINE] Allergy Unknown I-ITCHING Verified 08/21/22 13:50 [facility] Disclaimer: The information contained in this section may have been updated after the patient was seen, as this information can be updated by other users. Medical History Colonoscopy planned History of back pain History of heart attack Right leg injury Surgical History History of tympanoplasty of right ear Hx of cardiac catheterization S/P insertion of spinal cord stimulator Family History Other No significant family history Social History Smoking Status: Current every day smoker tobacco type: cigarettes packs per day: 1 years smoked: 40 alcohol intake: current counseling provided: none substance use type: denies use current occupational status: unemployed Travel in the last 8 weeks: None household members: none housing: house lives independently: Yes marital status: service: No chcf: No current occupational exposures/hazards: No caffeine: Yes do you feel safe at home: Yes victim of physical abuse: No victim of emotional abuse: No victim of sexual abuse: No ROS Obtained: Yes All systems reviewed & no additional complaints except as documented Physical Exam General General appearance: alert and in no apparent distress Head Head exam: atraumatic and normocephalic Eye Eye exam: Present normal appearance, PERRL and EOM
== END 2022-11-27 06:53 | disposition home or self-care (01) ==
PROVIDERS: Emergency Provider Emergency Medicine; PCP Emergency Medicine
DX: F10.929 Alcohol use, unspecified with intoxication, unspecified (principal); F17.210 Nicotine dependence, cigarettes, uncomplicated; I25.2 Old myocardial infarction
CPT/HCPCS: 99281

== ENCOUNTER 2023-07-16 11:40 | Emergency (ER) | payer SELFPAY ==
[2023-07-16] VITALS (10 sets, daily range): BP systolic 106–124; BP diastolic 79–87; PULSE 68–114; RESP 13–24; TEMP 36.4–36.6; O2SAT 97–100; BMI 25.8
--- NOTE | 2023-07-16 11:41 | ECG_ITS ---
APPROVED REPORT Exam: Resting ECG HR:120 bpm ECG Measurements Heart Rate 120 AXES ND 158 P 165 QRSd 105 QRS -8 QT 306 T 144 QTc 377 Conclusion Sinus tachycardia with some underlying motion artifact. No acute STEMI. Electronically signed by : DARIEL WEISS, 07/17/2023 15:14:35
--- NOTE | 2023-07-16 11:51 | PC.NURSE ---
DR WEISS AT BEDSIDE
--- NOTE | 2023-07-16 11:53 | CT_ITS ---
FINAL REPORT TECHNIQUE: The patient was injected with IV contrast. Axial images were obtained through the chest in a PE protocol. 3-D reconstruction images were also performed. Individualized dose reduction techniques using automated exposure control or adjustment of the MA and/or KV according to patient's size were employed. CLINICAL HISTORY: dysphagia x 3 months, 140lb unintent wt loss, SOA FINDINGS: Mediastinal vasculature is adequately opacified. No pulmonary artery filling defects are identified to suggest PE. There is no aortic dissection. There is no axillary adenopathy. There is no hilar or mediastinal adenopathy. The heart size is normal. There is no pericardial or pleural effusion. No suspicious infiltrate or nodule is identified. The ascending aorta measures up to 4.0 cm in diameter. There is scarring in the lung bases. IMPRESSION: No pulmonary embolus or dissection. Ascending aortic aneurysm. Reviewed, Interpreted and Dictated by Cornell Moran MD Transcribed by Melyssa Bedolla Authenticated and [facility]
--- NOTE | 2023-07-16 11:53 | CT_ITS ---
FINAL REPORT TECHNIQUE: After the administration of intravenous contrast, axial images were obtained through the abdomen and pelvis by computed tomography. The study was performed with techniques to keep radiation dose as low as reasonably achievable, (ALARA). Individual dose reduction techniques using automated exposure control or adjustment of mA and/or kV according to the patient's size were employed. CLINICAL HISTORY: dysphagia x 3 months, 140lb unintent wt loss FINDINGS: Abdomen: There is a large amount of ascites. There is a multitude of intrahepatic masses, largest measuring up to 9.2 x 7.5 cm in transverse and AP dimensions. There is extensive adenopathy around the celiac axis, root of the mesentery and retroperitoneum. Adenopathy measures up to 15.5 x 12.0 cm in transverse in AP dimension. The mass in the upper abdomen is indistinguishable from the medial wall of the stomach. Invasion or disruption of the medial gastric wall can not be excluded. There is an abdominal aortic aneurysm measuring 5.6 cm in maximum transverse dimension. Pelvis: There is a large amount of ascites in the pelvis. There is moderate sigmoid diverticulosis. The appendix is unremarkable. IMPRESSION: Multitude of hepatic masses, likely metastatic Extensive complex masses in the upper abdomen and retroperitoneum with possible invasion or disruption of the stomach. Tissue sampling is recommended to confirm cell type. 5.6 cm abdominal aortic aneurysm. Reviewed, Interpreted and Dictated by Cornell Moran MD Transcribed by Melyssa Bedolla Authenticated and [facility]
--- NOTE | 2023-07-16 11:53 | CT_ITS ---
FINAL REPORT TECHNIQUE: Thin section axial CT images with coronal reformats were obtained through the neck after the administration of IV contrast. This study was performed with techniques to keep radiation doses as low as reasonably achievable (ALARA). Individualized dose reduction techniques using automated exposure control or adjustment of mA and/or kV according to the patient''s size were employed. CLINICAL HISTORY: dysphagia x 3 months, 140lb unintent wt loss FINDINGS: There is a 2.2 cm nodule in the right lobe of the thyroid well seen on image 84 of series 3. There is no significant cervical adenopathy. There is moderate vascular calcification of the left carotid bifurcation. No significant underlying stenosis is identified. IMPRESSION: Right thyroid lobe nodule. Recommend dedicated thyroid ultrasound. Reviewed, Interpreted and Dictated by Cornell Moran MD Transcribed by Melyssa Bedolla Authenticated and [facility]
--- NOTE | 2023-07-16 11:56 | HMH.EDCP ---
Discharge Plan Disposition Patient Disposition: Xfer Short-Term Hosp Prescriptions Prescriptions: No Action No Known Home Medications Referrals Follow up/Referrals: Provider,Referral, MD [Primary Care Provider] - See instructions Clinical Impressions Clinical Impression: Unintentional weight loss, Abdominal mass, Metastasis to liver, Cachexia, Dehydration, AAA (abdominal aortic aneurysm) Discharge ED Provider: Chloe Mandujano HPI General Chief Complaint: Chest Pain Stated Complaint: Chest Pain Time Seen by Provider: 07/16/23 11:42 Mode of Arrival: Ambulatory Source of Information: Patient Limitations: No Limitations Description of Symptoms (Recalled from ER Triage Doc. by RN): pt presents to ED with c/o chest pain, difficulty swallowing. symptoms ongoing for the past 2 months. pt reports symptoms worsening over the past 2 weeks. chest pain is worse with inspiration or deep breaths. pt reports history of esophageal issues in the past. History of Present Illness HPI narrative: This patient is a 58-year-old male with a history of hypertension, hyperlipidemia, CAD, GERD, and tobacco dependence as well as prior history of alcohol abuse presenting with concern for dysphagia, unintentional weight loss, chest pain, and shortness of breath. Patient reports that for the last 2 to 3 months, he has had progressively worsening dysphagia to the point where he is now no longer tolerating liquids. He also states that he occasionally gets choked up on his saliva and has to vomit. He notes that he has unintentionally lost 140 pounds over this time. He notes that for the last 2 weeks, his symptoms been getting much worse and he has gotten to the point where he cannot walk up stairs without getting extremely short of breath and experiencing chest discomfort that is worse with inspiration and deep breaths. He notes he had a history of esophageal issues in the past about 15 years ago, and that his last time he had endoscopy. No other concerns, such as fevers, chills, change in bowel movements, or other issues. Related Data Home Medications Medication Instructions Recorded Confirmed No Known Home Medications 07/16/23 07/16/23 Allergies Allergy/AdvReac Type Severity Reaction Status Date / Time codeine [CODEINE] Allergy Unknown I-ITCHING Verified 07/16/23 14:09 [facility] Disclaimer: The information contained in this section may have been updated after the patient was seen, as this information can be updated by other users. Medical History Colonoscopy planned Right leg injury History of back pain History of heart attack Surgical History History of tympanoplasty of right ear S/P insertion of spinal cord stimulator Hx of cardiac catheterization Family History Other No significant family history Social History Smoking Status: Current every day smoker tobacco type: cigarettes packs per day: 1 years smoked: 40 alcohol intake: current counseling provided: none substance use type: denies use current occupational status: unemployed Travel in the last 8 weeks: None household members: none housing: house lives independently: Yes marital status: service: No senior living: No current occupational exposures/hazards: No caffeine: Yes do you feel safe at home: Yes victim of physical abuse: No victim of emotional abuse: No victim of sexual abuse: No ROS Obtained: Yes All systems reviewed & no additional complaints except as documented Physical Exam General General appearance: alert, in no apparent distress and cachectic Comment: Cachectic with temporal wasting Head Head exam: atraumatic and normocephalic Eye Eye exam: Present normal appearance, PERRL and EOMI ENT ENT exam: Present normal oropharynx, mucous membranes dry and normal external ear exam Neck Neck exam: Present normal inspection, full ROM and trachea midline; Absent tenderness Chest Chest inspection: Present normal inspection and symmetric chest wall rise; Absent tenderness Respiratory Respiratory exam: Present normal lung sounds bilaterally; Absent respiratory distress, wheezes, stridor or accessory muscle use Cardiovascular Cardiovascular exam: Present normal rhythm and tachycardia Abdominal Exam Abdominal exam: Present soft; Absent distention, tenderness or guarding Extremities Exam Extremities exam: Present normal inspection, full ROM and normal capillary refill; Absent tenderness or edema Back Exam Back exam: Present normal inspection and full ROM; Absent tenderness Neurological Exam Neurological exam: Present alert, oriented X3, CN II-XII intact and normal gait; Absent motor sensory deficit Psychiatric Psychiatric exam: Present normal affect and normal mood Skin Skin exam: Present warm and dry HEART Score HEART Score HEART Score assessment performed?: Yes History (anamnesis): Slightly suspicious ECG: Non-specific disturbance Age: 45-65 years Risk factors: 1-2 risk factors Troponin: </= normal limit HEART Score: 3 Critical Care Critical Care Time Critical Care Time: No Medical Decision Making Medical Records Medical records reviewed: Yes I reviewed the patient's medical records. Eric Inquiry Pt receiving controlled substance: No Vital Signs Vital Signs: 07/16/23 11:40 07/16/23 12:07 07/16/23 12:15 Temperature 97.6 F Temperature Source Oral Pulse Rate 88 91 H Pulse Rate [Left Radial] 114 H Respiratory Rate 19 20 20 Blood Pressure Blood Pressure [Right Arm] 124/87 Blood Pressure Mean [Right Arm] 99 02 Sat by Pulse Oximetry 97 97 97 Oxygen Delivery Method Room Air Room Air Room Air 07/16/23 12:53 07/16/23 13:00 07/16/23 13:30 Temperature Temperature Source Pulse Rate 81 78 68 Pulse Rate [Left Radial] Respiratory Rate 22 22 21 Blood Pressure 106/79 L Blood Pressure [Right Arm] Blood Pressure Mean [Right Arm] 02 Sat by Pulse Oximetry 100 98 98 Oxygen Delivery Method Room Air 07/16/23 14:00 07/16/23 14:30 Temperature Temperature Source Pulse Rate 79 74 Pulse Rate [Left Radial] Respiratory Rate 13 20 Blood Pressure 115/82 118/87 Blood Pressure [Right Arm] Blood Pressure Mean [Right Arm] 02 Sat by Pulse Oximetry 98 98 Oxygen Delivery Method Lab Data Labs: Lab Results 07/16/23 11:45: WBC 7.1, RBC 3.46 L, Hgb 10.8 L, Hct 35.2 L, MCV 101.8 H, MCH 31.2, MCHC 30.7 L, RDW 14.6, Plt Count 331, MPV 9.1, Neut % (Auto) 76.6, Lymph % (Auto) 16.1, [place] % (Auto) 6.2, Eos % (Auto) 0.6, Baso % (Auto) 0.5, Neut # (Auto) 5.4, Lymph # (Auto) 1.1, [place] # (Auto) 0.4, Eos # (Auto) 0.0, Baso # (Auto) 0.0, Sodium 136, Potassium 4.0, Chloride 108 H, Carbon Dioxide 29, Anion Gap 3.0 L, BUN 23 H, Creatinine 0.80, Estimated Creat Clear 105, Estimated GFR 100, Est GFR ( Amer) 121, Glucose 125 H, Calcium 8.5, Phosphorus 4.1, Magnesium 2.1, Total Bilirubin 0.6, AST 87 H, ALT 38, Alkaline Phosphatase 142 H, Troponin I < 0.01, NT-Pro-B Natriuret Pep 1240 H, Total Protein 6.1 L, Albumin 3.0 L, Globulin 3.1, Albumin/Globulin Ratio 1.0 L, Lipase 44, TSH 7.56 H, Thyroxine (T4) 7.8 07/16/23 11:53: VBG pH 7.45 H, VBG pCO2 30.4 L, VBG pO2 58.2 H, VBG HCO3 20.6 L, VBG Total CO2 21.5 L, VBG O2 Saturation 88.6 H, VBG Base Excess -3.5 L, VBG Lactic Acid 2.6 H 07/16/23 11:45 07/16/23 11:45 Response Orders (Tests/Meds): ED MEDICATIONS Generic Name Dose Route Start Last Admin Trade Name Freq PRN Reason Stop Dose Admin Lactated Ringer's 1,000 mls @ 150 mls/hr 07/16/23 14:45 Lactated Ringer's 1000 Ml Bag IV 08/15/23 14:44 .[id number] NISHANT Discontinued Medications Generic Name Dose Route Start Last Admin Trade Name Freq PRN Reason Stop Dose Admin Lactated Ringer's 1,000 mls @ 999 mls/hr 07/16/23 12:03 07/16/23 12:08 Lactated Ringer's 1000 Ml Bag IV 07/16/23 13:03 999 mls/hr .Q1H1M ONE Administration Iopamidol 150 ml 07/16/23 12:48 07/16/23 12:49 Iopamidol-370 (76%);100ml Bottle IV 07/16/23 12:49 150 ml ONCE ONE Administration Sodium Chloride 10 ml 07/16/23 12:48 07/16/23 12:49 Sodium Chloride 0.9% 10ml Syr (Rad Only) IV 07/16/23 12:49 10 ml ONCE ONE Administration Sodium Chloride 50 ml 07/16/23 12:48 07/16/23 12:49 0.9 % Sodium Chloride 50 Ml Vial IV 07/16/23 12:49 50 ml ONCE ONE Administration ORDERS Category Date Time Status CT abdomen pelvis w con Stat Cat Scan 07/16/23 11:[address] angio chest PE protocol Stat Cat Scan 07/16/23 11:[address] soft tissue neck w con Stat Cat Scan 07/16/23 11:53 Completed Complete Blood Count Auto Diff Stat Lab 07/16/23 11:45 Completed Comprehensive Metabolic Panel Stat Lab 07/16/23 11:45 Completed Lipase Stat Lab 07/16/23 11:45 Completed Magnesium Stat Lab 07/16/23 11:45 Completed NT Pro Brain Natriuretic Pep. Stat Lab 07/16/23 11:45 Completed Phosphorous Stat Lab 07/16/23 11:45 Completed T4 (Thyroxine) Stat Lab 07/16/23 11:45 Completed Thyroid Stimulating Hormone Stat Lab 07/16/23 11:45 Completed Troponin I Q3H Lab 07/16/23 15:00 Ordered Troponin I Q3H Lab 07/16/23 18:00 Ordered Troponin I Stat Lab 07/16/23 11:45 Completed Venous Blood Gas Stat RT 07/16/23 11:53 Completed ECG Data Tracing #1: Attestation: I reviewed this ECG and interpreted as documented below: ECG Narrative: Sinus tachycardia with a ventricular rate of [address]/T wave changes. No prior EKG for comparison. Some motion artifact noted. ECG initial impression date: 07/16/23 ECG initial impression time: 11:42 MDM Narrative Medical Decision Narrative: In summary, this patient is a 58-year-old male presenting to the Emergency Department for evaluation of dysphagia, unintentional weight loss, chest pain, and shortness of breath. He presents with cachexia and temporal wasting. differential diagnoses considered include but are not limited to malignancy, achalasia, ACS, dysrhythmia, PE, CHF. Ruling out the most morbid conditions drove assessment. On exam, the patient is thin with temporal wasting and cachexia. He has sinus tachycardia but otherwise vitals are reassuring. Workup included CBC, CMP, magnesium, TSH, T4, troponin, VBG, BNP, CT soft tissue neck, CTA PE protocol, and CT abdomen and pelvis with IV contrast. EKG was obtained and is reassuring. A bolus of IV fluids was initiated. I independently interpreted CT scans prior to the radiologist read and noted large abdominal masses as well as incidental findings of AAA. Please see their read for final interpretation. Radiology notes that the patient has extensive complex masses in the upper abdomen and retroperitoneum with possible invasion into the stomach. He also has multiple hepatic masses, likely metastatic. AAA is 5.6 cm. Labs were obtained that demonstrated mild metabolic alkalosis, mildly elevated BUN, mildly elevated BNP, and mild anemia with a hemoglobin of 10. No other acutely concerning abnormalities noted on labs. On reassessment, patient had some improvement after administration of IV fluids. My biggest concern at this time is that he has a large mass involving his stomach and inability to tolerate oral intake. I would consider outpatient follow-up with oncology for evaluation and management, however given that he has no way to get adequate nutrition, I feel he would benefit from transfer to higher level of care. Given this, I called and had an interactive discussion with Dr. Ann at [facility] who accepted the patient for transfer for further evaluation and management. Patient was transported by EMS in stable condition with maintenance fluids running at 150/h.
[2023-07-16 12:05] LABS: VBG Base Excess -3.5 mmol/L (-2.4-2.3); VBG HCO3 20.6 mmol/L (23-30); VBG Oxygen Saturation 88.6 % (50-70); VBG PCO2 30.4 mmol/L (35-51); VBG PH 7.45 mmol/L (7.31-7.41); VBG PO2 58.2 mmol/L (28-40); VBG Total CO2 21.5 mmol/L (23-27)
[2023-07-16 12:06] LABS: Basophils % 0.5 % (0.1-2.0); Chloride 108 mmol/L (98-107); Eosinophils % 0.6 % (0.1-12.0); Hematocrit 35.2 % (42.0-52.0); Hemoglobin 10.8 g/dL (14.1-18.0); Lymphocytes # 1.1 K/mm3 (0.7-4.5); Lymphocytes % 16.1 % (10-50); Mean Corpuscular HGB Conc 30.7 g/dL (31.8-35.4); Mean Corpuscular Hemoglobin 31.2 pg (27.0-31.2); Mean Corpuscular Volume 101.8 fl (80-94); Mean Platelet Volume 9.1 fl (7.4-10.4); Monocytes # 0.4 K/mm3 (0.1-1.0); Monocytes % 6.2 % (1.7-9.3); Neutrophils # 5.4 K/mm3 (1.8-7.8); Neutrophils % 76.6 % (37.0-80.0); Platelet Count 331 K/mm3 (142-424); Red Blood Count 3.46 M/mm3 (4.60-6.20); Red Cell Distribution Width 14.6 % (11.5-17.5); White Blood Count 7.1 K/mm3 (4.8-10.8)
[2023-07-16 12:06] LABS: Lactate Venous 2.6 mmol/L (0.4-2.0)
[2023-07-16 12:07] LABS: Sodium 136 mmol/L (136-145)
[2023-07-16] MEDS: LACTATED RINGERS 1000ML 1,000 ML 999 ML IV (12:08)
[2023-07-16 12:09] LABS: Alanine Aminotransferase 38 U/L (12-78); Alkaline Phosphatase 142 U/L (38-126); Aspartate Amino Transferase 87 U/L (17-59); Bilirubin,Total 0.6 mg/dl (0.2-1.3); Blood Urea Nitrogen 23 mg/dl (9-20); Carbon Dioxide 29 mmol/L (22.0-30.0); Creatinine Clearance Estimated 105 mL/min (50-200); Estimated Glomerular Filt Rate 100 ml/min (>60); GFR (African American) 121 ML/MIN (>60)
[2023-07-16 12:10] LABS: Calcium 8.5 mg/dl (8.4-10.2); Globulin 3.1 g/dL (1.3-3.2); Glucose 125 mg/dl (74-100); Lipase 44 U/L (23-300); Magnesium 2.1 mg/dl (1.6-2.3); Phosphorous 4.1 mg/dl (2.5-4.5); Total Protein,Serum 6.1 g/dl (6.3-8.2)
--- NOTE | 2023-07-16 12:10 | PC.NURSE ---
Rounded on pt. No needs voiced at this time. Call light within reach
[2023-07-16 12:18] LABS: NT Pro Brain Natriuretic Pep. 1240 pg/mL (0-125)
[2023-07-16 12:23] LABS: Troponin I < 0.01 ng/ml (0.00-0.034)
[2023-07-16] MEDS: IOPAMIDOL-370 (76%);100ML BOTTLE 150 ML IV (12:49)
[2023-07-16] MEDS: SODIUM CHLORIDE 0.9% 10ML SYR (RAD ONLY) 10 ML IV (12:49)
[2023-07-16] MEDS: 0.9 % SODIUM CHLORIDE 50 ML VIAL IV (12:49)
--- NOTE | 2023-07-16 13:30 | PC.NURSE ---
PT RESTING IN BED, FAMILY AT BEDSIDE
[2023-07-16 13:48] LABS: T4 (Thyroxine) 7.8 ug/dl (5.53-11.0)
[2023-07-16 14:02] LABS: Thyroid Stimulating Hormone 7.56 uIU/mL (0.465-4.68)
--- NOTE | 2023-07-16 14:21 | PC.NURSE ---
called [facility] per Dr Benson to speak with someone about this pt.[facility] advised they would call back in few
--- NOTE | 2023-07-16 14:22 | PC.NURSE ---
images have been power shared to [facility] as well
--- NOTE | 2023-07-16 14:39 | PC.NURSE ---
[facility] called back and is speaking widaniel Mandujano now about this pt
--- NOTE | 2023-07-16 14:41 | PC.NURSE ---
DR WEISS SPEAKING WITH [facility]
[2023-07-16] MEDS: LACTATED RINGERS 1000ML 1,000 ML 150 ML IV (15:04)
[2023-07-16 16:07] LABS: Reflex Lactic Add Lactic Reflex
== END 2023-07-16 15:24 | disposition short-term general hospital (02) ==
PROVIDERS: Emergency Provider Emergency Medicine
DX: I71.40 Abdominal aortic aneurysm, without rupture, unspecified (principal); R07.9 Chest pain, unspecified; R06.02 Shortness of breath; R00.0 Tachycardia, unspecified; E86.0 Dehydration; R64 Cachexia; C78.7 Secondary malignant neoplasm of liver and intrahepatic bile duct; I11.9 Hypertensive heart disease without heart failure; I25.10 Atherosclerotic heart disease of native coronary artery without angina pectoris; E78.5 Hyperlipidemia, unspecified; K21.9 Gastro-esophageal reflux disease without esophagitis; F17.210 Nicotine dependence, cigarettes, uncomplicated; Z56.0 Unemployment, unspecified
CPT/HCPCS: 70491; 71275; 74177; 80053; 82803; 83690; 83735; 83880; 84100; 84436; 84443; 84484; 85025; 93005; 96360; 99285; Q9967